=== PATIENT | female | born 1990 | race African-American/Black ===

== ENCOUNTER 2020-08-19 23:48 | Inpatient (IN) | payer BC ==
[~2020-08-19] VITALS: Ht 154.9 cm; Wt 75.7 kg
[2020-08-19 23:49] VITALS: BP 124/71
[2020-08-20 02:01] LABS: ABSOLUTE NEUTROPHILS 7.6 thou/uL (1.4-8.2); BASOPHILS 0.7 % (0.0-2.0); EOSINOPHILS 3.8 % (0.0-3.0); HEMATOCRIT 36.8 % (37.0-47.0); HEMOGLOBIN 12.8 gm/dL (12.0-15.0); LYMPHOCYTES 16.3 % (24.0-44.0); MCH 28.9 pg (26.0-34.0); MCHC 34.6 g/dL (28.0-37.0); MCV 83.3 fL (80.0-100.0); MONOCYTES 4.7 % (1.0-8.0); PLATELET COUNT 189 thou/uL (150-400); POLYS 74.5 % (36.0-66.0); RBC 4.42 mil/uL (4.20-5.00); RDW 13.2 % (10.5-14.5); WBC 10.2 thou/uL (4.0-11.0)
[2020-08-20 02:06] LABS: CALCIUM 8.8 mg/dL (8.5-10.1); CREATININE 0.7 mg/dL (0.6-1.0); POTASSIUM 3.8 mmol/L (3.5-5.1)
[2020-08-20 06:14] VITALS: BP 109/64
[2020-08-20 07:09] VITALS: BP 97/57
[2020-08-20 08:00] VITALS: BP 105/50
--- NOTE | 2020-08-20 09:38 | NUR ---
Pt transferred to unit from ED. On 2L O2. Denies pain. Admission completed. On breathing treatments and IV steroids. No other c/o at this time. Call light within reach. Will continue to monitor.
--- NOTE | 2020-08-20 12:43 | NUR ---
ASSESSMENT: CM REVIEWED CHART AND SPOKE WITH PATIENT. PT WAS ADMITTED DUE TO STATUS ASTHMATICUS AND IS CURRENTLY ON IV SOLUMEDROL. PT IS 13 WEEKS PER RECORDS. CM MET WITH PT WHO IS ALERT AND ORIENTED X4. PT REPORTS LIVING IN A HOUSE WITH HER AND CHILDREN. PT REPORTS BEING FULLY INDEPENDENT WITH ADLS AND AMBULATION. CM DISCUSSED ROLE. PT DOES NOT ANTICIPATE HAVING ANY NEEDS FROM CM . CM WILL CONTINUE TO FOLLOW TO ASSIST NEEDED.
[2020-08-20 15:20] VITALS: BP 106/72
[2020-08-20 22:42] VITALS: BP 106/67
--- NOTE | 2020-08-21 04:00 | NUR ---
PT SLEPT THRO THE NOC. COUGH MEDS HELPING ALOT. CONTINUES ON RT TREATMENTS WELL STEROIDS. PT REPORTS FEELING BETTER OVERALL. UP AD JORDEN. AFEBRILE. DENIES NAUSEA OR VOMITING.PLEASANT.
[2020-08-21 07:40] VITALS: BP 100/52
--- NOTE | 2020-08-21 11:08 | NUR ---
ON-GOING ASSESSMENT: CM REVIEWED CHART. CM SPOKE WITH HOSPITALIST WHO IS CONSULTED AND LIKELY DISCHARGE TODAY. PT HAS NO NEEDS FROM CM.
[2020-08-21] MEDS ORDERED: PROAIR HFA8.5 GM INH (12:10)
[2020-08-21] MEDS ORDERED: PREDNISONE 10 M10 M1 PO (12:11)
[2020-08-21 12:59] VITALS: BP 100/52
--- NOTE | 2020-08-21 14:08 | NUR ---
ASSUMED PT CARE AROUND 0700. PT ALERT X ORIENTED X4. ON ROOM AIR. UP AD JORDEN. IV RT AC SALINE LOCKED. VSS. PRN COUGH MEDICINE GIVEN. PT 13 WEEKS . WILL CALL APPROPRIATELY FOR HELP. PT DISCHARGED AROUND 1400.
== END 2020-08-21 14:00 | disposition home or self-care (01) | DRG 831 ==
LOC: ER 23:48 → 4S 08-20 02:05 → EROBS 08-20 02:05 → 4S 08-20 07:32
PROVIDERS: Emergency Medicine; ADMIT Hospitalist; ATTEND Hospitalist
DX: O99.511 Diseases of the respiratory system complicating pregnancy, first trimester (principal); J96.01 Acute respiratory failure with hypoxia; J45.902 Unspecified asthma with status asthmaticus; Z3A.12 12 weeks gestation of pregnancy; Z88.0 Allergy status to penicillin
CPT/HCPCS: 10100